=== PATIENT | female | born 1990 | race Caucasian/White ===

== ENCOUNTER 2019-04-26 21:17 | Emergency (ER) | payer OTHER ==
[~2019-04-26 21:17] MED LIST: AMOXIL500 MG PO; MOTRIN800 MG PO; ZITHROMAX Z PA250 MG PO
== END 2019-04-26 22:47 | disposition home or self-care (01) ==
LOC: ED 21:17
DX: S66.911A Strain of unspecified muscle, fascia and tendon at wrist and hand level, right hand, initial encounter (principal); W19.XXXA Unspecified fall, initial encounter; Y93.64 Activity, baseball; Y92.89 Other specified places as the place of occurrence of the external cause; Y99.8 Other external cause status

== ENCOUNTER → 2019-11-02 | Outpatient (CLI) | payer OTHER | END | disposition home or self-care (01) | LOC: US 09:03 | DX: K76.0 Fatty (change of) liver, not elsewhere classified (principal); N21.0 Calculus in bladder ==

== ENCOUNTER 2020-06-22 22:35 | Emergency (ER) | payer OTHER ==
[~2020-06-22] VITALS: Ht 160 cm; Wt 83.9 kg
[2020-06-22 23:06] LABS: BILIRUBIN Negative (Negative); BLOOD 1+ (Negative); CLARITY Cloudy (Clear); COLOR Yellow (Yellow); GLUCOSE Negative (Negative); KETONE Trace (Negative); LEUKO ESTERASE 3+ (Negative); NITRITE Negative (Negative); PH 7.5 (4.5-8.0)
[2020-06-22 23:33] LABS: WBC 41-50 wbc/hpf (0-5)
[2020-06-22 23:34] LABS: BACTERIA TRACE
[2020-06-22] MEDS ORDERED: CIPRO500 MG PO (23:37)
== END 2020-06-23 00:01 | disposition home or self-care (01) ==
LOC: ED 22:35
PROVIDERS: Internal Medicine
DX: N39.0 Urinary tract infection, site not specified (principal); F17.200 Nicotine dependence, unspecified, uncomplicated; Z88.6 Allergy status to analgesic agent

== ENCOUNTER 2022-08-10 21:31 | Emergency (ER) | payer OTHER ==
[~2022-08-10] VITALS: Ht 160 cm; Wt 97.5 kg
[~2022-08-10 21:31] MED LIST changes: +CIPRO500 MG PO
== END 2022-08-11 00:06 | disposition home or self-care (01) ==
LOC: ED 21:31
DX: S00.03XA Contusion of scalp, initial encounter (principal); Z88.6 Allergy status to analgesic agent; W21.07XA Struck by softball, initial encounter; Y93.89 Activity, other specified; Y92.89 Other specified places as the place of occurrence of the external cause; Y99.8 Other external cause status

== ENCOUNTER 2024-11-15 20:32 | Emergency (ER) | payer OTHER ==
[~2024-11-15] VITALS: Ht 160 cm; Wt 90.7 kg
[2024-11-15] MEDS ORDERED: NAPROXEN250 MG PO (22:50)
== END 2024-11-15 22:53 | disposition home or self-care (01) ==
LOC: ED 20:32
DX: S60.222A Contusion of left hand, initial encounter (principal); Z88.5 Allergy status to narcotic agent; Z88.8 Allergy status to other drugs, medicaments and biological substances; W21.07XA Struck by softball, initial encounter; Y93.64 Activity, baseball; Y92.89 Other specified places as the place of occurrence of the external cause; Y99.8 Other external cause status